=== PATIENT | female | born 1950 | race Caucasian/White ===

== ENCOUNTER → 2016-09-17 | Outpatient (CLI) | payer MEDICARE, OTHER ==
[~2016-09-17] MED LIST: ALLO100T PO; AMOX-351 PO; ATOR40TA PO; CALC-747 PO; CETI-269 PO; DIVA500T31 PO; FURO40TA5 PO; GEMF600T PO; GLIP5TAB11 PO; LEVO50TA11 PO; LISI-127 PO; MAGN400T6 PO; ONDA-56 PO; POTA-81 PO; PRED10TA PO; SITA1TAB6 PO; ZIPR20CA9 PO
== END ==
LOC: WC.BC 15:04
PROVIDERS: ATTEND Family Medicine
DX: C50.912 Malignant neoplasm of unspecified site of left female breast (principal); N64.59 Other signs and symptoms in breast; Z08 Encounter for follow-up examination after completed treatment for malignant neoplasm
CPT/HCPCS: G0204; G0279

== ENCOUNTER → 2016-10-30 | Outpatient (CLI) | payer MEDICARE, OTHER | LOC: IMA 14:25 | PROVIDERS: ATTEND Internal Medicine Medical Oncology | DX: C50.412 Malignant neoplasm of upper-outer quadrant of left female breast (principal) | CPT/HCPCS: 76642; G0206; G0279 ==

== ENCOUNTER 2018-02-01 19:24 | Observation (INO) ==
[2018-02-01] MEDS: ADENOSINE 6mg/2ml INJECTION IVP ONE ×2 (19:39→19:50)
[2018-02-01] MEDS ORDERED: NS 1,000 ML IV ONE (19:42)
[2018-02-01] MEDS ORDERED: SALINE FLUSH 10ml SYRINGE IVF PRN (19:42)
--- NOTE | 2018-02-01 19:50 | Emergency Department Report ---
Cardiac General HPI - General Stated Complaint: high pulse, heart problems Time Seen by Provider: 02/01/18 19:42 Source: patient, family, RN notes reviewed, old records reviewed Mode of arrival: ambulatory Limitations: no limitations - History of Present Illness HPI narrative: 67yo woman presents to the ER for evaluation of a fast heart rate. Pt had abrupt onset of weakness around 1800 tonight. She tried to improve things by lying down. After things did not improve, pt used her pulse-oximeter and noted that her heart rate was very fast. Pt then presented to the ER. Pt has a h/o interstitial lung dz. No previously dx'ed cardiac issues, though pt had some ST changes on routine pre-op EKG last week; pt has been referred to Dr. Haywood, but has not yet seen him. This evening, prior to her symptoms, pt ate in [place]. When she got home, her BG was in the 400s; pt took her 15units of insulin. Pt was previously controlled Occurred At: home Onset (ago): hour(s) Duration: constant Severity: severe Context: occurred during rest Activites at Onset: rest Modifying Factors: none Associated Symtoms: other (weakness) History of Similar Symptoms: No - Related Data Home Medications Medication Instructions Recorded Confirmed Albuterol Sulfate [Proair Hfa] 2 puff INH Q6H PRN 02/01/18 02/01/18 Allopurinol [Zyloprim] 200 mg PO DAILY 02/01/18 02/01/18 Atorvastatin [Lipitor] 40 mg PO HS 02/01/18 02/01/18 Calcium Carbonate/Vitamin D3 1 tab PO DAILY 02/01/18 02/01/18 [Calcium 600-Vit D3 400 Tablet] Cetirizine HCl [Zyrtec] 10 mg PO DAILY 02/01/18 02/01/18 Furosemide [Lasix 40 mg Tab] 40 mg PO DAILY PRN 02/01/18 02/01/18 Gemfibrozil [Lopid] 600 mg PO BID 02/01/18 02/01/18 Insulin Aspart [Novolog Flexpen] 15 unit SQ TIDWM 02/01/18 02/01/18 Insulin Detemir [Levemir Flextouch] 40 unit SQ HS 02/01/18 02/01/18 Letrozole 2.5 mg PO DAILY 02/01/18 02/01/18 Levothyroxine Sodium 100 mcg PO ACB 02/01/18 02/01/18 Magnesium Oxide [Magnesium] 400 mg PO DAILY 02/01/18 02/01/18 Mycophenolate Mofetil [Cellcept] 1,000 mg PO BID 02/01/18 02/01/18 Omeprazole [Prilosec] 20 mg PO DAILY 02/01/18 02/01/18 Potassium Chloride 20 meq PO DAILY PRN 02/01/18 02/01/18 Sulfamethox/Tmp [Bactrim Ds] 1 tab PO MOWEFR 02/01/18 02/01/18 glipiZIDE [Glipizide ER] 5 mg PO BID 02/01/18 02/01/18 Allergies Allergy/AdvReac Type Severity Reaction Status Date / Time meperidine [From Demerol] AdvReac Mild Hallucinati Verified 02/01/18 19:54 ng Review of Systems All systems: reviewed and negative except as stated Cardiovascular: Reports: as per HPI, palpitations, dyspnea on exertion. 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 Port-A-Cath insertion 10/03/2015. Bronchoscopy with biopsy 09/12/15. Breast Lumpectomy 08/29/15. Core Needle Biopsy of the breast 08/20/15. Colonoscopy normal 2010. Lithotripsy 2010. Hysterectomy 1996. Suspension of Bladder 1996. Cholecystectomy 1975 Family History: Family History (Last Reviewed 01/06/18 @ 06:39 by Dong Flores MD) Father Cancer of colon High cholesterol Diabetes High blood pressure Heart disease Mother Cancer of breast Brother Pancreatic cancer High blood pressure Obesity High cholesterol Heart disease Diabetes - Social History Smoking status: Never smoker second hand exposure: No Substance use type: does not use Alcohol intake frequency: does not drink Household members: spouse Current occupational status: retired Does patient use chewing tobacco?: No Physical Exam - Limitations Limitations: no limitations - General General appearance: alert, in no apparent distress, obese (Morbid) - Head Head exam: atraumatic, normocephalic, normal inspection - Eye Eye exam: Present: normal appearance, PERRL, EOMI. Absent: scleral icterus - ENT ENT exam: Present: normal exam, normal oropharynx, mucous membranes moist, normal external ear exam - Neck Neck exam: Present: normal inspection, full ROM, trachea midline. Absent: tenderness, lymphadenopathy - Chest Chest inspection: Present: normal inspection, symmetric chest wall rise. Absent : tenderness, rash - Respiratory Respiratory exam: Present: normal lung sounds bilaterally. Absent: respiratory distress, wheezes, stridor, prolonged expiratory phase, crackles - Cardiovascular Cardiovascular exam: Present: normal rhythm, tachycardia, normal heart sounds. Absent: regular rate, rubs, gallop, clicks - Abdominal Exam Abdominal exam: Present: soft, normal bowel sounds. Absent: distention, tenderness, guarding, rebound, rigidity - Extremities Exam Extremities exam: Present: normal inspection, full ROM, normal capillary refill. Absent: tenderness, pedal edema - Skin Skin exam: Present: warm, dry, intact. Absent: rash - Neurological Exam Neurological exam: Present: alert, oriented X3, CN II-XII intact, normal gait, reflexes normal - Psychiatric Psychiatric exam: Present: agitated, anxious Course - Consultations Consultation #1: Dr. Haywood: Nothing concerning on EKGs. If pt is feeling better, can d/c to home with f/u tomorrow at 1030. If not feeling better, can admit overnight. Time: 20:50 Vital Signs Pulse Rate 155 H 02/01/18 19:30 Respiratory Rate 02/01/18 19:30 Blood Pressure 121/72 02/01/18 19:30 Pulse Oximetry 93 02/01/18 19:30 Pulse Rate 155 H 02/01/18 19:30 Respiratory Rate 24 02/01/18 19:30 Blood Pressure 121/72 02/01/18 19:30 Pulse Oximetry 93 02/01/18 19:30 Cardiac General - MDM Narrative Medical decision making narrative: After discussion of options with pt, pt feels that she is still dyspneic and weak. Pt opts for admission overnight. Will oblige. - Differential Diagnosis Differential diagnosis: Likely: palpitations, sinus tachycardia, artial fibrillation, artial flutter, supraventricular tachycardia - Medical Records Attestation: I reviewed the patient's medical records. - Lab Data Attestation: I reviewed the patient's lab results. Result diagrams: 02/01/18 19:41 02/01/18 19:41 Lab Results 02/01/18 02/01/18 02/01/18 Range/Units 19:41 19:41 20:38 WBC 11.1 H (4.5-11.0) T/MM3 RBC 4.36 (4.00-5.20) M/MM3 Hgb 12.3 (12-16) GM/DL Hct 38.9 (36-46) % MCV 89.2 (80-100) UM3 MCH 28.2 (26-34) UUG MCHC 31.6 (31-37) GM/DL RDW Std Deviation 46.7 (36.9-50.2) FL Plt Count 414 H (130-400) T/MM3 MPV 10.9 (9.4-12.4) UM3 Immature Gran % (Auto) 0.5 (0.0-0.5) % Neut % (Auto) 74.3 H (33-66) % Lymph % (Auto) 18.2 L (23-45) % [place] % (Auto) 5.9 (0-9.0) % Eos % (Auto) 0.7 (0-4) % Baso % (Auto) 0.4 (0-2) % Neut # (Auto) 8.3 H (1.8-7.7) T/MM3 Lymph # (Auto) 2.0 (1-4.8) T/MM3 [place] # (Auto) 0.7 (0-0.8) T/MM3 Eos # (Auto) 0.1 (0-0.5) T/MM3 Baso # (Auto) 0.0 (0-0.2) T/MM3 Abs Immat Gran (auto) 0.06 H (0.00-0.03) T/MM3 Turbidity < 20 (0-20) Sodium 142 (136-146) MEQ/L Potassium 4.2 (3.6-5) MEQ/L Chloride 102 (98-107) MEQ/L Carbon Dioxide 26 (22-30) MEQ/L Anion Gap 14 (5-15) meq/L BUN 29.0 H (7-17) MG/DL Creatinine 1.1 (0.7-1.2) mg/dL Estimated Creat Clear 58 (>50) mL/min GFR Calculation 50 (>60) mL/min BUN/Creatinine Ratio 26 (6-26) RATIO Glucose 273 H (65-110) MG/DL Calculated Osmolality 289 H (261-280) MOSM/KG Calcium 9.4 (8.4-10.2) MG/DL Magnesium 1.6 (1.6-2.3) MG/DL Icterus Index < 2 (0-7) Troponin I 0.016 (0-0.12) ng/ml TSH 0.48 (0.47-4.68) mIU/L Specimen Hemolysis < 15 (0-25) Ur Collection Type Urine, void-cc/notcc Urine Color Yellow (YELLOW) Urine Clarity Clear Urine pH 5.5 (5.0-8.0) Ur Specific [place] 1.010 L (1.015-1.025) Urine Protein Negative (NEGATIVE) Urine Glucose (UA) 3+ A (NEGATIVE) Urine Ketones Negative (NEGATIVE) Urine Occult Blood Negative (NEGATIVE) Urine Nitrate Negative (NEGATIVE) Urine Bilirubin Negative (NEGATIVE) Urine Urobilinogen 0.2 (NORMAL) EU/DL Ur Leukocyte Esterase Negative (NEGATIVE) Urinalysis Comment Microscopic not ind. - Radiology Data Attestation: I reviewed the patient's radiology results. CXR: Hypoventilation. Diffuse interstitical infiltrates. No effusions/ consolidations. Cardiomegaly. No acute pathology. - EKG Data EKG #1 EKG attestation: Yes: I reviewed and interpreted this EKG. EKG shows normal: axis, ST-T waves Rate: tachycardia Rhythm: SVT [place]/QRS: RBBB P waves: other (Short [place]) EKG #2 EKG attestation: Yes: I reviewed and interpreted this EKG. EKG shows normal: sinus rhythm, axis, intervals, QRS complexes, ST-T waves Rate: tachycardia Interpretation: other (Sinus tachycardia) Disposition Clinical Impression: SVT (supraventricular tachycardia) Disposition: 02 To OBS [facility] Print Language: Persian Condition: Improved Prescriptions: No Action Sulfamethox/Tmp [Bactrim Ds] 1 tab PO MOWEFR Mycophenolate Mofetil [Cellcept] 1,000 mg PO BID Letrozole 2.5 mg PO DAILY Insulin Aspart [Novolog Flexpen] 15 unit SQ TIDWM Calcium Carbonate/Vitamin D3 [Calcium 600-Vit D3 400 Tablet] 1 tab PO DAILY Insulin Detemir [Levemir Flextouch] 40 unit SQ HS Omeprazole [Prilosec] 20 mg PO DAILY glipiZIDE [Glipizide ER] 5 mg PO BID Gemfibrozil [Lopid] 600 mg PO BID Cetirizine HCl [Zyrtec] 10 mg PO DAILY Atorvastatin [Lipitor] 40 mg PO HS Potassium Chloride 20 meq PO DAILY PRN PRN Reason: Prn Orders Magnesium Oxide [Magnesium] 400 mg PO DAILY Furosemide [Lasix 40 mg Tab] 40 mg PO DAILY PRN PRN Reason: Edema Albuterol Sulfate [Proair Hfa] 2 puff INH Q6H PRN PRN Reason: Shortness Of Air/Wheezing Levothyroxine Sodium 100 mcg PO ACB Allopurinol [Zyloprim] 200 mg PO DAILY Referrals: Jose Garvin MD [Primary Care Provider] - Time of Disposition: 21:06 - Seen By: physician
[2018-02-01 21:55] VITALS: BMI 41.2
[2018-02-01] MEDS ORDERED: FUROSEMIDE 40 MG TABLET PO PRN (22:22)
[2018-02-01] MEDS ORDERED: ZOLPIDEM 5 MG TABLET PO PRN (22:27)
[2018-02-01] MEDS ORDERED: ONDANSETRON 4 MG/2 ML INJECTION IVP PRN (22:27)
[2018-02-01] MEDS ORDERED: ALBUTEROL 2.5mg/3ml (0.083%) NEB AEROSOL PRN (22:36)
[2018-02-02] MEDS ORDERED: LEVOTHYROXINE 100 MCG TABLET PO SCH (06:30)
--- NOTE | 2018-02-02 08:02 | XRay Report ---
Indication: Tachycardia PROCEDURE: XR chest 1V: Encounter: Initial Comparison: Chest CT dated December 02, 2015 Findings: Chronic hypoinflation of the lungs with mild fibrosis. No consolidative pneumonia, gross pleural effusion or pneumothorax. Limited evaluation of the left lung base due to cardiac silhouette and overlapping soft tissues. Right IJ port catheter. Cardiac silhouette remains mildly enlarged. Mediastinal contours and pulmonary vascularity are stable. Impression: No focal pneumonia or overt congestive failure. .
[2018-02-02 08:26] VITALS: O2SAT 96
[2018-02-02] MEDS ORDERED: OMEPRAZOLE 20 MG CAPSULE PO SCH (09:00)
[2018-02-02] MEDS ORDERED: LETROZOLE 2.5 MG TABLET PO SCH (09:00)
[2018-02-02] MEDS ORDERED: PredniSONE 10 MG TABLET PO SCH (09:00)
[2018-02-02] MEDS ORDERED: SULFAMETHOXAZOLE/TMP 800 MG/160 MG DS TABLET PO SCH (09:00)
[2018-02-02] MEDS ORDERED: CETIRIZINE 10 MG TABLET PO SCH (09:00)
[2018-02-02] MEDS ORDERED: MYCOPHENOLATE MOFETIL 250 MG CAPSULE PO SCH (09:00)
[2018-02-02] MEDS ORDERED: ALLOPURINOL 100 MG TABLET PO SCH (09:00)
[2018-02-02] MEDS ORDERED: DOCUSATE SODIUM 100 MG CAPSULE PO PRN (09:00)
[2018-02-02] MEDS ORDERED: GEMFIBROZIL 600 MG TABLET PO SCH (09:00)
[2018-02-02] MEDS ORDERED: CALCIUM 600 + VIT D 400 TABLET PO SCH (09:00)
[2018-02-02] MEDS ORDERED: MAGNESIUM OXIDE 400 MG TABLET PO SCH (09:00)
[2018-02-02] MEDS: INSULIN ASPART 100unit/ml INJECTION SQ SCH ×2 (09:41→13:17)
--- NOTE | 2018-02-02 11:01 | Cardiology History & Physical ---
History of Present Illness Chief complaint: palpitations HPI: Dalia is a 67 year old female who presented to the ED for evaluation of a fast heart rate. She reportedly had an abrupt onset of weakness around 1800 last night and after things did not improve by lying down, she used her pulse- oximeter and noted that her heart rate was very fast. She has a history of interstitial lung disease, DM, HLD and thyroid disease but denies cardiac issues ; she had some ST changes on routine pre-op EKG last week and has been referred to Dr. Haywood, but has not yet seen him. EKG initially showed SVT and she was given Adenosine fast IVP to slow the rate from the 160s to low 100s. Dr. Haywood was consulted and patient was admitted for observation and further evaluation. Dalia is examined on the Surgical floor. She reports fatigue and weakness. She denies chest pain, pressure, tightness, palpitations, skipping or racing heart beat. She has dyspnea at her baseline and wears 3L/NC of O2 at home due to her lung disease which was diagnosed following surgery for breast cancer. Review of Systems - Constitutional Constitutional: Present: fatigue. Absent: chills, fever(s) - EENMT Eyes: Absent: change in vision Balance: Absent: vertigo Mouth/Throat: Absent: sore throat - Cardiovascular Cardiovascular: Present: dyspnea on exertion. Absent: chest pain, palpitations , orthopnea, heart murmur Rhythm: Absent: abnormal rhythm - Respiratory Respiratory: Present: dyspnea, dyspnea on exertion - Gastrointestinal Gastrointestinal: Absent: abdominal pain, diarrhea, nausea, vomiting - Genitourinary Genitourinary: Absent: dysuria - Integumentary/Breasts Integumentary: Absent: rash - Neurological Neurological: Absent: dizziness - Endocrine Endocrine: Present: palpitations [facility] Patient Stated Medical History Congestive Heart Failure Yes Other Respiratory Yes: interstitial lung disease, oxygen dependent 3l/nc Diabetes Mellitus Type 2 Yes Gastroesophageal Reflux Yes: TAKES PPI DUE TO BEING ON PREDNISONE Disease Hx Kidney Stones Yes Chemotherapy Yes Other Yes: POWER PORT 2016 RIGHT CHEST Depression Yes: LOSS OF SON AT AGE 14 Clinic Medical History (Last Reviewed 01/06/18 @ 06:39 by Dong Flores MD) Family history of colon cancer in father (Acute Medical) Diabetes (Chronic Medical) High cholesterol (Chronic Medical) Interstitial lung disease (Chronic Medical) Thyroid disease (Chronic Medical) Breast cancer (Inactive Medical) Surgical History: Mammogram 10/30/2016. Port-A-Cath insertion 10/03/2015. Bronchoscopy with biopsy 09/12/15. Breast Lumpectomy 08/29/15. Core Needle Biopsy of the breast 08/20/15. Colonoscopy normal 2010. Lithotripsy 2010. Hysterectomy 1996. Suspension of Bladder 1996. Cholecystectomy 1975 Family History: Family History (Last Reviewed 01/06/18 @ 06:39 by Dong Flores MD) Father Cancer of colon High cholesterol Diabetes High blood pressure Heart disease Mother Cancer of breast Brother Pancreatic cancer High blood pressure Obesity High cholesterol Heart disease Diabetes - Social History Smoking status: Never smoker second hand exposure: No Substance use type: does not use Alcohol intake frequency: does not drink Household members: spouse Current occupational status: retired Does patient use chewing tobacco?: No Medications Home Medications Medication Instructions Recorded Confirmed Type Albuterol Sulfate [Proair Hfa] 2 puff INH Q6H PRN 02/01/18 02/01/18 History Allopurinol [Zyloprim] 200 mg PO DAILY 02/01/18 02/01/18 History Atorvastatin [Lipitor] 40 mg PO HS 02/01/18 02/01/18 History Calcium Carbonate/Vitamin D3 1 tab PO DAILY 02/01/18 02/01/18 History [Calcium 600-Vit D3 400 Tablet] Cetirizine HCl [Zyrtec] 10 mg PO DAILY 02/01/18 02/01/18 History Furosemide [Lasix 40 mg Tab] 40 mg PO DAILY PRN 02/01/18 02/01/18 History Gemfibrozil [Lopid] 600 mg PO BID 02/01/18 02/01/18 History Insulin Aspart [Novolog Flexpen] 15 unit SQ TIDWM 02/01/18 02/01/18 History Insulin Detemir [Levemir Flextouch] 40 unit SQ HS 02/01/18 02/01/18 History Letrozole 2.5 mg PO DAILY 02/01/18 02/01/18 History Levothyroxine Sodium 100 mcg PO ACB 02/01/18 02/01/18 History Magnesium Oxide [Magnesium] 400 mg PO DAILY 02/01/18 02/01/18 History Mycophenolate Mofetil [Cellcept] 1,000 mg PO BID 02/01/18 02/01/18 History Omeprazole [Prilosec] 20 mg PO DAILY 02/01/18 02/01/18 History Potassium Chloride 20 meq PO DAILY PRN 02/01/18 02/01/18 History Sulfamethox/Tmp [Bactrim Ds] 1 tab PO MOWEFR 02/01/18 02/01/18 History glipiZIDE [Glipizide ER] 5 mg PO BID 02/01/18 02/01/18 History DiltiaZEM CD [Cardizem CD 120 MG] 120 mg PO DAILY #30 cap 02/02/18 Rx PredniSONE [Deltasone 10 mg] 10 mg PO WB 02/02/18 02/02/18 History Allergies Allergy/AdvReac Type Severity Reaction Status Date / Time meperidine [From Demerol] AdvReac Mild Hallucinati Verified 02/01/18 19:54 ng Exam Vital signs: Temperature 97.4 F 02/02/18 08:00 Pulse Rate 77 02/02/18 09:54 Respiratory Rate 20 02/02/18 08:00 Blood Pressure 145/69 H 02/02/18 08:00 Pulse Oximetry 96 02/02/18 08:00 - Constitutional no acute distress, well nourished, cooperative - Routine HEENT Exam Head: Present: normocephalic ENT: Present: mucous membranes moist - Routine Neck Exam Absent: JVD, carotid bruit - Routine Chest/Breast/Axilla Exam Chest wall: Absent: tenderness - Routine Respiratory Exam Present: accessory muscle use, dyspnea, diminished air movement - Routine Cardiovascular Exam Present: RRR - Routine Abdominal Exam Present: soft, non tender - Routine Extremities Exam Present: no edema - Routine Skin Exam Present: intact, dry, warm - Routine Neurological Exam Present: alert, oriented X3 - Routine Psychiatric Exam Present: normal affect, normal thought process Results 02/02/18 04:26 02/02/18 04:26 Cardiac Enzymes 02/01/18 Range/Units 19:41 Troponin I 0.016 (0-0.12) ng/ml CBC 02/01/18 02/02/18 Range/Units 19:41 04:26 WBC 11.1 H 7.4 (4.5-11.0) T/MM3 RBC 4.36 4.00 (4.00-5.20) M/MM3 Hgb 12.3 11.1 L (12-16) GM/DL Hct 38.9 36.3 (36-46) % Plt Count 414 H 379 (130-400) T/MM3 Neut # (Auto) 8.3 H Not performed (1.8-7.7) T/MM3 Lymph # (Auto) 2.0 Not performed (1-4.8) T/MM3 [place] # (Auto) 0.7 Not performed (0-0.8) T/MM3 Eos # (Auto) 0.1 Not performed (0-0.5) T/MM3 Baso # (Auto) 0.0 Not performed (0-0.2) T/MM3 Comprehensive Metabolic Panel 02/01/18 02/02/18 Range/Units 19:41 04:26 Sodium 142 142 (136-146) MEQ/L Potassium 4.2 3.5 L (3.6-5) MEQ/L Chloride 102 103 (98-107) MEQ/L Carbon Dioxide 26 28 (22-30) MEQ/L BUN 29.0 H 27.0 H (7-17) MG/DL Creatinine 1.1 1.0 (0.7-1.2) mg/dL Glucose 273 H 118 H (65-110) MG/DL Calcium 9.4 9.0 (8.4-10.2) MG/DL Intake and Output 02/01/18 02/02/18 02/02/18 22:59 06:59 14:59 Intake Total 1000 / 1000 1015 / 1015 Balance 1000 / 1000 1015 / 1015 Intake: IV 1000 / 1000 Ns 1,000 ml @ 1000 mls/hr IV . 1000 / 1000 Q1H ONE Rx#:[id number] Oral 1015 / 1015 Other: Urine Appearance Clear Urine Color Yellow Urine Odor Normal # Voids 2 Weight 240 lb 1.334 oz - Imaging and Cardiology Imaging & Cardiology Narrative: Date of Exam: 02/01/18 Ordering Provider: Jose Miguel Gonzalez DO Type of Exam(s): XR chest 1V Reason for Exam(s): Tachycardia Indication: Tachycardia PROCEDURE: XR chest 1V: Encounter: Initial Comparison: Chest CT dated December 02, 2015 Findings: Chronic hypoinflation of the lungs with mild fibrosis. No consolidative pneumonia, gross pleural effusion or pneumothorax. Limited evaluation of the left lung base due to cardiac silhouette and overlapping soft tissues. Right IJ port catheter. Cardiac silhouette remains mildly enlarged. Mediastinal contours and pulmonary vascularity are stable. Impression: No focal pneumonia or overt congestive failure. 02/02/18 11:02 EKG interpretations - EKG EKG results cardiology: sinus rhythm - Blocks, axis, hypertrophy, ST abn Repolarization changes or abnormalities: nonspecific abnormality, ST segment, and/or T wave - MA, pacemaker, normal Myocardial infarction: inferior MA (old age indeterminate) Hospital Course This is a general summary of the patient's hospital course. For more details refer to the complete medical record. Time spent with patient: 25 - 35 minutes Resuscitation Status: Full Code Assessment and Plan - Attestation Attestation Narrative: 02/07/18 13:57 Recommendation After examining the patient I agree with the above assessment. I am involved in the formulation of the patient's plan of care. - Assessment and Plan (1) SVT (supraventricular tachycardia) Status: Acute - HR 160s, converted to SR, 80-90s now - BB contraindicated due to lung disease - Cardizem CD 120mg daily for rate control - K+ 3.5, replace with 40meq X1, Mag 1.8 replace with 1gm Mag IV today - 2D echo pending - Discharge with outpatient stress test and follow up with Dr. Haywood in 2 weeks (2) Interstitial lung disease Status: Chronic PCP manages (3) Type 2 diabetes mellitus without complications Status: Chronic PCP manages (4) Hypothyroidism Status: Chronic PCP manages (5) Mixed hyperlipidemia Status: Chronic PCP manages
[2018-02-02] MEDS ORDERED: MAGNESIUM SULFATE 1gm PREMIX 1 GM/100 ML BAG IV ONE (11:28)
[2018-02-02] MEDS ORDERED: ENOXAPARIN 40 MG/0.4 ML INJECTION SQ SCH (11:45)
--- NOTE | 2018-02-02 14:23 | Discharge Summary ---
<Betzaida Eubanks - Last Filed: 02/02/18 15:21> Discharge Information Date of admission: 02/01/18 21:00 Anticipated date of discharge: 02/02/18 Attending Physician: Sammy Haywood MD Primary care physician: Jose Garvin MD - Discharge Diagnosis (1) SVT (supraventricular tachycardia) Status: Acute (2) Interstitial lung disease Status: Chronic (3) Type 2 diabetes mellitus without complications Status: Chronic (4) Hypothyroidism Status: Chronic (5) Mixed hyperlipidemia Status: Chronic Problems Reviewed?: Yes SVT - Laboratory Labs: 02/02/18 04:26 02/02/18 04:26 History of Present Illness HPI: Dalia is a 67 year old female who presented to the ED for evaluation of a fast heart rate. She reportedly had an abrupt onset of weakness around 1800 last night and after things did not improve by lying down, she used her pulse- oximeter and noted that her heart rate was very fast. She has a history of interstitial lung disease, DM, HLD and thyroid disease but denies cardiac issues ; she had some ST changes on routine pre-op EKG last week and has been referred to Dr. Haywood, but has not yet seen him. EKG initially showed SVT and she was given Adenosine fast IVP to slow the rate from the 160s to low 100s. Dr. Haywood was consulted and patient was admitted for observation and further evaluation. Dalia is examined on the Surgical floor. She reports fatigue and weakness. She denies chest pain, pressure, tightness, palpitations, skipping or racing heart beat. She has dyspnea at her baseline and wears 3L/NC of O2 at home due to her lung disease which was diagnosed following surgery for breast cancer. Hospital Course This is a general summary of the patient's hospital course. For more details refer to the complete medical record. Hospital course: SVT (supraventricular tachycardia) Current visit: Yes Status: Acute - HR 160s, converted to SR, 80-90s now - BB contraindicated due to lung disease - Cardizem CD 120mg daily for rate control - K+ 3.5, replace with 40meq X1, Mag 1.8 replace with 1gm Mag IV today - 2D echo pending - Discharge with outpatient stress test and follow up with Dr. Haywood in 2 weeks Interstitial lung disease Current visit: Yes Status: Chronic - PCP manages Type 2 diabetes mellitus without complications Current visit: Yes Status: Chronic - PCP manages Hypothyroidism Current visit: Yes Status: Chronic - PCP manages Mixed hyperlipidemia Current visit: Yes Status: Chronic - PCP manages Time spent with patient: 25 - 35 minutes Resuscitation Status: Full Code Exam Vital signs: Temperature 97.4 F 02/02/18 08:00 Pulse Rate 77 02/02/18 09:54 Respiratory Rate 20 02/02/18 08:00 Blood Pressure 145/69 H 02/02/18 08:00 Pulse Oximetry 96 02/02/18 08:00 - Constitutional no acute distress, well nourished, cooperative - Routine HEENT Exam Head: Present: normocephalic ENT: Present: mucous membranes moist - Routine Neck Exam Absent: JVD, carotid bruit - Routine Chest/Breast/Axilla Exam Chest wall: Absent: tenderness - Routine Respiratory Exam Present: dyspnea, CTA bilaterally. Absent: rales, crackles - Routine Cardiovascular Exam Present: RRR, S1, S2, no murmur - Routine Abdominal Exam Present: soft, non tender - Routine Extremities Exam Present: edema - Routine Skin Exam Present: intact, dry, warm - Routine Neurological Exam Present: alert, oriented X3 - Routine Psychiatric Exam Present: normal affect, normal thought process Results 02/02/18 04:26 02/02/18 04:26 Cardiac Enzymes 02/01/18 Range/Units 19:41 Troponin I 0.016 (0-0.12) ng/ml CBC 02/01/18 02/02/18 Range/Units 19:41 04:26 WBC 11.1 H 7.4 (4.5-11.0) T/MM3 RBC 4.36 4.00 (4.00-5.20) M/MM3 Hgb 12.3 11.1 L (12-16) GM/DL Hct 38.9 36.3 (36-46) % Plt Count 414 H 379 (130-400) T/MM3 Neut # (Auto) 8.3 H Not performed (1.8-7.7) T/MM3 Lymph # (Auto) 2.0 Not performed (1-4.8) T/MM3 Isabella # (Auto) 0.7 Not performed (0-0.8) T/MM3 Eos # (Auto) 0.1 Not performed (0-0.5) T/MM3 Baso # (Auto) 0.0 Not performed (0-0.2) T/MM3 Comprehensive Metabolic Panel 02/01/18 02/02/18 Range/Units 19:41 04:26 Sodium 142 142 (136-146) MEQ/L Potassium 4.2 3.5 L (3.6-5) MEQ/L Chloride 102 103 (98-107) MEQ/L Carbon Dioxide 26 28 (22-30) MEQ/L BUN 29.0 H 27.0 H (7-17) MG/DL Creatinine 1.1 1.0 (0.7-1.2) mg/dL Glucose 273 H 118 H (65-110) MG/DL Calcium 9.4 9.0 (8.4-10.2) MG/DL Intake and Output 02/01/18 02/02/18 02/02/18 22:59 06:59 14:59 Intake Total 1000 / 1000 1015 / 1015 Balance 1000 / 1000 1015 / 1015 Intake: IV 1000 / 1000 Ns 1,000 ml @ 1000 mls/hr IV . 1000 / 1000 Q1H ONE Rx#:[id number] Oral 1015 / 1015 Other: Urine Appearance Clear Urine Color Yellow Urine Odor Normal # Voids 2 Weight 240 lb 1.334 oz - Imaging and Cardiology Echo: pending Imaging & Cardiology Narrative: = = = = = = = = = = = = = = = = = = = = = = = = = = = = = = = = = = = = = = = = = = = = = = = = = = = = = = = = = = = Date of Exam: 02/01/18 Ordering Provider: Jose Miguel Gonzalez DO Type of Exam(s): XR chest 1V Reason for Exam(s): Tachycardia Indication: Tachycardia PROCEDURE: XR chest 1V: Encounter: Initial Comparison: Chest CT dated December 02, 2015 Findings: Chronic hypoinflation of the lungs with mild fibrosis. No consolidative pneumonia, gross pleural effusion or pneumothorax. Limited evaluation of the left lung base due to cardiac silhouette and overlapping soft tissues. Right IJ port catheter. Cardiac silhouette remains mildly enlarged. Mediastinal contours and pulmonary vascularity are stable. Impression: No focal pneumonia or overt congestive failure. 02/02/18 14:21 Discharge Plan - Med Rec/Dispo Referrals/Follow Up: Sammy Haywood MD [Physician] - 02/17/18 9:50 am [facility] Instructions: Diltiazem (By mouth) (Cardizem, Cardizem CD, Cardizem LA, Cardizem SR), Supraventricular Tachycardia (DC) Prescriptions: New DiltiaZEM CD [Cardizem CD 120 MG] 120 mg PO DAILY #30 cap Continue Sulfamethox/Tmp [Bactrim Ds] 1 tab PO MOWEFR Mycophenolate Mofetil [Cellcept] 1,000 mg PO BID Letrozole 2.5 mg PO DAILY Insulin Aspart [Novolog Flexpen] 15 unit SQ TIDWM Calcium Carbonate/Vitamin D3 [Calcium 600-Vit D3 400 Tablet] 1 tab PO DAILY Insulin Detemir [Levemir Flextouch] 40 unit SQ HS Omeprazole [Prilosec] 20 mg PO DAILY glipiZIDE [Glipizide ER] 5 mg PO BID Gemfibrozil [Lopid] 600 mg PO BID Cetirizine HCl [Zyrtec] 10 mg PO DAILY Atorvastatin [Lipitor] 40 mg PO HS Potassium Chloride 20 meq PO DAILY PRN PRN Reason: Prn Orders Magnesium Oxide [Magnesium] 400 mg PO DAILY Furosemide [Lasix 40 mg Tab] 40 mg PO DAILY PRN PRN Reason: Edema PredniSONE [Deltasone 10 mg] 10 mg PO WB Albuterol Sulfate [Proair Hfa] 2 puff INH Q6H PRN PRN Reason: Shortness Of Air/Wheezing Levothyroxine Sodium 100 mcg PO ACB Allopurinol [Zyloprim] 200 mg PO DAILY - Disposition 01 Discharged Home, Self-Care - Dismissal Complete Discharge Instructions are:: Incomplete <Sammy Haywood - Last Filed: 02/07/18 14:27> Discharge Information Date of admission: 02/01/18 21:00 Attending Physician: Sammy Haywood MD Primary care physician: Jose Garvin MD - Discharge Diagnosis (1) SVT (supraventricular tachycardia) Status: Acute (2) Interstitial lung disease Status: Chronic (3) Type 2 diabetes mellitus without complications Status: Chronic (4) Hypothyroidism Status: Chronic (5) Mixed hyperlipidemia Status: Chronic - Laboratory Labs: 02/02/18 04:26 02/02/18 04:26 Hospital Course This is a general summary of the patient's hospital course. For more details refer to the complete medical record. Exam Vital signs: Temperature 98.5 F 02/02/18 15:37 Pulse Rate 84 02/02/18 15:38 Respiratory Rate 18 02/02/18 15:37 Blood Pressure 138/63 02/02/18 15:37 Pulse Oximetry 96 02/02/18 15:37 Results 02/02/18 04:26 02/02/18 04:26 Attestation Narriative - Attestation Attestation Narrative: 02/07/18 14:27 Recommendation After examining the patient I agree with the above assessment. I am involved in the formulation of the patient's plan of care.
[2018-02-02 15:38] VITALS: BP 138/63; PULSE 84; RESP 18; TEMP 98.5
[2018-02-02] MEDS ORDERED: INSULIN DETEMIR 100unit/ml INJECTION SQ SCH (21:00)
[2018-02-02] MEDS ORDERED: ATORVASTATIN 40 MG TABLET PO SCH (21:00)
--- NOTE | 2018-02-04 09:03 | Echocardiogram ---
DATE OF PROCEDURE February 02, 2018 This is a two-dimensional echo with spectral Doppler, color-flow and M-mode. It was obtained in a patient with supraventricular tachycardia. Left atrial dimension is normal. Left ventricle end-diastolic dimension is normal. Left ventricle wall thickness is normal. LV systolic function is normal with ejection fraction of 65%. Right atrium is normal. Right ventricle is normal. Aortic root dimension is normal. Mitral valve is sclerotic with mild mitral regurgitation. Aortic valve is a trileaflet structure with no stenosis or insufficiency. Tricuspid valve shows mild tricuspid regurgitation with moderate pulmonary hypertension with estimated pulmonary artery systolic pressure of 58. Pulmonary valve shows mild pulmonary insufficiency. There is no pericardial effusion. IMPRESSION 1. Normal LV systolic function with ejection fraction of about 65%. 2. Mild mitral regurgitation. 3. Mild tricuspid regurgitation with moderate pulmonary hypertension with estimated pulmonary artery systolic pressure of 58. 4. Mild pulmonary insufficiency. MTDD
== END 2018-02-02 16:25 | disposition home or self-care (01) ==
LOC: ED 19:24 → EDHOLD 19:24 → SRG 21:34
PROVIDERS: ADMIT Internal Medicine Cardiovascular Disease; ATTEND Internal Medicine Cardiovascular Disease